=== PATIENT | female | born 1980 | race American Indian/Alaskan Native ===

== ENCOUNTER 2016-11-22 10:40 | Outpatient (CLI) | payer MEDICAID | END 2016-11-22 10:41 | disposition home or self-care (01) | LOC: SPVWC 10:40 | PROVIDERS: ATTEND Internal Medicine Hematology & Oncology | DX: M79.661 Pain in right lower leg (principal); M79.662 Pain in left lower leg; M79.89 Other specified soft tissue disorders ==

== ENCOUNTER 2017-05-06 09:47 | Outpatient (CLI) | payer MEDICAID ==
--- NOTE | 2017-05-08 14:50 | Vascular Lab Report ---
LEFT UPPER EXTREMITY VENOUS DUPLEX: REASON FOR EXAM: Swelling of the left upper extremity COMMENTS ON THE LEFT: Partially occlusive acute deep venous thrombus in the left brachial vein. The remaining veins visualized are freely compressible without evidence of internal echogenicity. Spontaneous and phasic flow is present proximally. COMMENTS ON THE RIGHT: The subclavian and internal jugular veins are free of thrombus. IMPRESSION: Acute left upper extremity deep venous thrombus in the left brachial vein.
== END 2017-05-06 09:48 | disposition home or self-care (01) ==
LOC: VAS 09:47
PROVIDERS: ATTEND Internal Medicine Hematology & Oncology
DX: I82.622 Acute embolism and thrombosis of deep veins of left upper extremity (principal); M54.2 Cervicalgia; C50.412 Malignant neoplasm of upper-outer quadrant of left female breast; E86.9 Volume depletion, unspecified; Z15.01 Genetic susceptibility to malignant neoplasm of breast

== ENCOUNTER 2017-06-27 10:24 | Outpatient (CLI) | payer MEDICAID ==
--- NOTE | 2017-06-29 09:53 | Vascular Lab Report ---
LEFT UPPER EXTREMITY VENOUS DUPLEX: REASON FOR EXAM: Left brachial thrombosis COMMENTS ON THE LEFT: All arm veins visualized are freely compressible without evidence of internal echogenicity. The subclavian and internal jugular veins are free of thrombus. Flow is spontaneous and phasic throughout COMMENTS ON THE RIGHT: A limited study of the jugular and subclavian veins shows no evidence of thrombus. IMPRESSION: No evidence of acute or chronic deep venous thrombosis in the left upper extremity.
== END 2017-06-27 10:25 | disposition home or self-care (01) ==
LOC: VAS 10:24
PROVIDERS: ATTEND Internal Medicine Hematology & Oncology
DX: I82.622 Acute embolism and thrombosis of deep veins of left upper extremity (principal); C50.412 Malignant neoplasm of upper-outer quadrant of left female breast; E86.9 Volume depletion, unspecified; Z15.01 Genetic susceptibility to malignant neoplasm of breast